=== PATIENT | female | born 1975 | race American Indian/Alaskan Native ===

== ENCOUNTER 2016-08-23 13:03 | Emergency (ER) | payer MEDICAID ==
[2016-08-23 13:55] LABS: Basophils % (Auto) 0.6 % (0.0-1.8); Eosinophils % (Auto) 0.1 % (0.0-4.3); Hemoglobin 11.6 gm/dl (10.1-14.3); Mean Corpuscular HGB Conc 31 % (30-34); Mean Corpuscular Volume 78 fl (79-97); Platelet Count 198 K/mm3 (140-440); Red Blood Count 4.72 M/mm3 (3.65-5.03); Red Cell Distribution Width 15.3 % (13.2-15.2); White Blood Count 4.6 K/mm3 (4.5-11.0)
[2016-08-23 14:02] LABS: Anion Gap 17 mmol/L; Blood Urea Nitrogen 7 mg/dL (7-17); Calcium 8.1 mg/dL (8.4-10.2); Carbon Dioxide 24 mmol/L (22-30); Chloride 99.8 mmol/L (98-107); Glucose 140 mg/dL (65-100); Potassium 3.3 mmol/L (3.6-5.0); Sodium 137 mmol/L (137-145)
[2016-08-23 14:12] LABS: Mean Corpuscular Hemoglobin 25 pg (28-32)
[2016-08-23 14:55] LABS: Bacteria,Urine 1+ /HPF (Negative); Bilirubin,Urine NEG (Negative); Blood,Urine MOD (Negative); Ketones,Urine NEG (Negative); Leukocyte Esterase,Urine MOD (Negative); Mucus,Urine FEW /HPF; Nitrite,Urine NEG (Negative); Urobilinogen,Urine < 2.0 mg/dL (<2.0)
[2016-08-23 15:25] VITALS: BP 108/67
--- NOTE | 2016-08-23 16:58 | Emergency Department Report ---
- General Chief Complaint: Chest Pain Stated Complaint: CHEST PAIN,SOB Time Seen by Provider: 08/23/16 16:19 Source: patient Mode of arrival: Ambulatory Limitations: No Limitations - History of Present Illness Initial Comments: 41-year-old female with a past medical history of PE in 2014 no longer on anticoagulation, -induced hypertension, anxiety, and anemia presents to the hospital complaints of cough and cold symptoms. For 2 days patient has had a productive cough. Today she noticed specks of blood. She also complaining of intermittent chills and sweats and generalized weakness. Patient feels like she has the flu. She denies documented fever. Mild shortness of breath reported. Patient complains of mild upper left chest pain secondary to anxiety that has since improved. - Related Data Home Medications Medication Instructions Recorded Confirmed Last Taken Metoprolol [Lopressor] 25 mg PO BID 11/14/14 12/02/15 11/28/15 25mg Previous Rx's Medication Instructions Recorded Last Taken Type Methylergonovine [Methergine] 0.2 mg PO BID #6 tablet 12/01/15 Unknown Rx Doxycycline [Vibramycin CAP] 100 mg PO Q12HR #14 capsule 12/02/15 Unknown Rx Ferrous Sulfate [Feosol 325 MG tab] 325 mg PO BID #60 tablet 12/02/15 Unknown Rx Multivitamin with Iron 1 each PO DAILY #30 tablet 12/02/15 Unknown Rx [Multivitamins with Iron] Azithromycin [Zithromax Z-ONLAN] 1 dose PO DAILY 5 Days 08/23/16 Unknown Rx Benzonatate [Tessalon Perles] 100 mg PO Q8HR PRN #20 capsule 08/23/16 Unknown Rx Cetirizine HCl [ZyrTEC] 10 mg PO DAILY #30 tab.rapdis 08/23/16 Unknown Rx traMADol [Ultram 50 MG tab] 50 mg PO Q6HR PRN #20 tablet 08/23/16 Unknown Rx Allergies Allergy/AdvReac Type Severity Reaction Status Date / Time ibuprofen [From Motrin] Allergy Shortness Verified 11/27/15 13:50 of Breath Penicillins Allergy Shortness Verified 11/30/15 20:24 of Breath Peanuts Allergy Unknown Uncoded 02/10/15 15:08 ED Review of Systems ROS: Stated complaint: CHEST PAIN,SOB Other details as noted in HPI Comment: All other systems reviewed and negative Other: Constitutional: Positive to Eyes: No eye pain visual changes ENT: No ear pain or throat pain Neck: Denies pain Respiratory: Per HPI Cardiovascular: Denies chest pain, palpitations, syncope GI: Denies abdominal pain, nausea, vomiting, diarrhea : Denies dysuria Musculoskeletal: Cramping of arm when taking her blood pressure Skin: Denies rash, lesions, erythema Neurologic: Denies headache, numbness, weakness Psychiatric: Denies suicidal ideation, hallucinations ED Past Medical Hx - Past Medical History Hx Hypertension: Yes (PIH) Hx Congestive Heart Failure: No Hx Diabetes: No Hx Deep Vein Thrombosis: Yes (Pulmonary embolus 07/18/14) Hx Pulmonary Embolism: Yes (07/18/14) Hx Renal Disease: No Hx Sickle Cell Disease: No Hx Seizures: No Hx Psychiatric Treatment: Yes (anxiety) Hx Asthma: No Hx COPD: No Hx HIV: No Additional medical history: anemia, vaginal delivery, panic attacks after having a child - Social History Smoking Status: Never Smoker Substance Use Type: None - Medications Home Medications: Home Medications Medication Instructions Recorded Confirmed Last Taken Type Metoprolol [Lopressor] 25 mg PO BID 11/14/14 12/02/15 11/28/15 History 25mg Methylergonovine [Methergine] 0.2 mg PO BID #6 tablet 12/01/15 12/02/15 Unknown Rx Doxycycline [Vibramycin CAP] 100 mg PO Q12HR #14 capsule 12/02/15 Unknown Rx Ferrous Sulfate [Feosol 325 MG tab] 325 mg PO BID #60 tablet 12/02/15 Unknown Rx Multivitamin with Iron 1 each PO DAILY #30 tablet 12/02/15 Unknown Rx [Multivitamins with Iron] Azithromycin [Zithromax Z-NOLAN] 1 dose PO DAILY 5 Days 08/23/16 Unknown Rx Benzonatate [Tessalon Perles] 100 mg PO Q8HR PRN #20 capsule 08/23/16 Unknown Rx Cetirizine HCl [ZyrTEC] 10 mg PO DAILY #30 tab.rapdis 08/23/16 Unknown Rx traMADol [Ultram 50 MG tab] 50 mg PO Q6HR PRN #20 tablet 08/23/16 Unknown Rx ED Physical Exam - General Limitations: No Limitations - Other Other exam information: General: No limitations, patient is alert in no acute distress Head exam: Atraumatic, normocephalic Eyes exam: Normal appearance ENT: Moist mucous membrane, normal oropharynx Neck exam: Normal inspection, full range of motion Respiratory exam: Clear to auscultation bilateral, no wheezes, rales, crackles Cardiovascular: Normal rate and rhythm, normal heart sounds Abdomen: Soft, nondistended, and nontender, with normal bowel sounds, no rebound, or guarding Extremity: Full range of motion normal inspection no deformity Back: Normal Inspection, full range of motion, no tenderness Neurologic: Alert, oriented x3, cranial nerves intact, no motor or sensory deficit Psychiatric: normal affect, normal mood Skin: Warm, dry, intact ED Course Vital Signs 08/23/16 08/23/16 08/23/16 14:20 14:41 16:30 Temperature 98.6 F Pulse Rate 88 79 Respiratory 9 L 21 Rate Blood Pressure 108/67 O2 Sat by Pulse 98 98 Oximetry - Reevaluation(s) Reevaluation #1: 08/23/16 16:56 Patient given by mouth potassium 40 mEq ED Medical Decision Making - Lab Data Result diagrams: 08/23/16 13:33 08/23/16 13:33 Lab Results 08/23/16 08/23/16 08/23/16 Range/Units 13:33 13:33 14:10 WBC 4.6 (4.5-11.0) K/mm3 RBC 4.72 (3.65-5.03) M/mm3 Hgb 11.6 (10.1-14.3) gm/dl Hct 37.0 (30.3-42.9) % MCV 78 L (79-97) fl MCH 25 L (28-32) pg MCHC 31 (30-34) % RDW 15.3 H (13.2-15.2) % Plt Count 198 (140-440) K/mm3 Lymph % (Auto) 36.6 H (13.4-35.0) % [place] % (Auto) 11.4 H (0.0-7.3) % Eos % (Auto) 0.1 (0.0-4.3) % Baso % (Auto) 0.6 (0.0-1.8) % Lymph # 1.7 (1.2-5.4) K/mm3 [place] # 0.5 (0.0-0.8) K/mm3 Eos # 0.0 (0.0-0.4) K/mm3 Baso # 0.0 (0.0-0.1) K/mm3 Seg Neutrophils % 51.3 (40.0-70.0) % Seg Neutrophils # 2.4 (1.8-7.7) K/mm3 Sodium 137 (137-145) mmol/L Potassium 3.3 L (3.6-5.0) mmol/L Chloride 99.8 (98-107) mmol/L Carbon Dioxide 24 (22-30) mmol/L Anion Gap 17 mmol/L BUN 7 (7-17) mg/dL Creatinine 0.7 (0.7-1.2) mg/dL Estimated GFR > 60 ml/min BUN/Creatinine Ratio 10.00 % Glucose 140 H (65-100) mg/dL Calcium 8.1 L (8.4-10.2) mg/dL Troponin T < 0.010 (0.00-0.029) ng/mL Urine Color Yellow (Yellow) Urine Turbidity Slightly-cloudy (Clear) Urine pH 5.0 (5.0-7.0) Ur Specific [place] 1.017 (1.003-1.030) Urine Protein 30 mg/dl (Negative) mg/dL Urine Glucose (UA) Neg (Negative) mg/dL Urine Ketones Neg (Negative) mg/dL Urine Blood Mod (Negative) Urine Nitrite Neg (Negative) Urine Bilirubin Neg (Negative) Urine Urobilinogen < 2.0 (<2.0) mg/dL Ur Leukocyte Esterase Mod (Negative) Urine WBC (Auto) 14.0 H (0.0-6.0) /HPF Urine RBC (Auto) 2.0 (0.0-6.0) /HPF U Epithel Cells (Auto) 18.0 H (0-13.0) /HPF Urine Bacteria (Auto) 1+ (Negative) /HPF Urine Mucus Few /HPF Urine HCG, Qual Negative (Negative) 08/23/16 Range/Units 15:50 WBC (4.5-11.0) K/mm3 RBC (3.65-5.03) M/mm3 Hgb (10.1-14.3) gm/dl Hct (30.3-42.9) % MCV (79-97) fl MCH (28-32) pg MCHC (30-34) % RDW (13.2-15.2) % Plt Count (140-440) K/mm3 Lymph % (Auto) (13.4-35.0) % [place] % (Auto) (0.0-7.3) % Eos % (Auto) (0.0-4.3) % Baso % (Auto) (0.0-1.8) % Lymph # (1.2-5.4) K/mm3 [place] # (0.0-0.8) K/mm3 Eos # (0.0-0.4) K/mm3 Baso # (0.0-0.1) K/mm3 Seg Neutrophils % (40.0-70.0) % Seg Neutrophils # (1.8-7.7) K/mm3 Sodium (137-145) mmol/L Potassium (3.6-5.0) mmol/L Chloride (98-107) mmol/L Carbon Dioxide (22-30) mmol/L Anion Gap mmol/L BUN (7-17) mg/dL Creatinine (0.7-1.2) mg/dL Estimated GFR ml/min BUN/Creatinine Ratio % Glucose (65-100) mg/dL Calcium (8.4-10.2) mg/dL Troponin T < 0.010 (0.00-0.029) ng/mL Urine Color (Yellow) Urine Turbidity (Clear) Urine pH (5.0-7.0) Ur Specific [place] (1.003-1.030) Urine Protein (Negative) mg/dL Urine Glucose (UA) (Negative) mg/dL Urine Ketones (Negative) mg/dL Urine Blood (Negative) Urine Nitrite (Negative) Urine Bilirubin (Negative) Urine Urobilinogen (<2.0) mg/dL Ur Leukocyte Esterase (Negative) Urine WBC (Auto) (0.0-6.0) /HPF Urine RBC (Auto) (0.0-6.0) /HPF U Epithel Cells (Auto) (0-13.0) /HPF Urine Bacteria (Auto) (Negative) /HPF Urine Mucus /HPF Urine HCG, Qual (Negative) - EKG Data -: EKG Interpreted by Me (sinus tach 104 nonspecific T-wave abnormalities) - EKG Data When compared to previous EKG there are: no significant change (compared to ) - Radiology Data Radiology results: image reviewed (cxr PA and lateral: No acute findings) - Medical Decision Making Plan to discharge patient was treatment with the antibiotics. Also seasonal allergies. Outpatient follow-up with PMD will be encouraged - Differential Diagnosis bronchitis, seasonal allergies, pneumonia, URI Critical Care Time: No Critical care attestation.: If time is entered above; I have spent that time in minutes in the direct care of this critically ill patient, excluding procedure time. ED Disposition Clinical Impression: Acute bronchitis, Seasonal allergies, Hypokalemia Disposition: DISCHARGED TO HOME OR SELFCARE Is pt being admited?: No Does the pt Need Aspirin: No Condition: Stable Instructions: Acute Bronchitis (ED), Hypokalemia (ED) Additional Instructions: Take the medication as prescribed. Return if symptoms worsen. Follow-up with a primary care doctor. Prescriptions: Azithromycin [Zithromax Z-NOLAN] 1 dose PO DAILY 5 Days Benzonatate [Tessalon Perles] 100 mg PO Q8HR PRN #20 capsule PRN Reason: Cough Cetirizine HCl [ZyrTEC] 10 mg PO DAILY #30 tab.rapdis traMADol [Ultram 50 MG tab] 50 mg PO Q6HR PRN #20 tablet PRN Reason: Pain Referrals: CHRISTINE CR MD [Staff Physician] - 3-5 Days [facility] [Provider Group] - 3-5 Days Time of Disposition: 17:00
[2016-08-23] MEDS ORDERED: K-DUR PO ONE ×2 (17:19→17:22)
--- NOTE | 2016-08-24 07:34 | XRay Report ---
CHEST 2 VIEWS INDICATION: Cough, chills and fever. COMPARISON: 12/01/2015 FINDINGS: PA and lateral chest radiographs demonstrate limited inspiration with slight exaggerated cardiomediastinal silhouette and crowded lung markings. No focal consolidation, pleural effusions or CHF. Intact bones. EKG lead. CONCLUSION: No definite acute chest process, as described. Thank you for the opportunity to participate in this patient's care.
== END 2016-08-23 17:25 | disposition home or self-care (01) ==
LOC: ED 13:03
DX: J20.9 Acute bronchitis, unspecified (principal); J30.2 Other seasonal allergic rhinitis; E87.6 Hypokalemia; I10 Essential (primary) hypertension; F41.9 Anxiety disorder, unspecified; Z86.718 Personal history of other venous thrombosis and embolism; D64.9 Anemia, unspecified; Z88.0 Allergy status to penicillin; Z88.6 Allergy status to analgesic agent; Z91.010 Allergy to peanuts
CPT/HCPCS: 36415; 71020; 80048; 81001; 81025; 84484; 85025; 93005; 93010

== ENCOUNTER 2020-10-23 19:21 | Emergency (ER) | payer MEDICAID, SELFPAY ==
[2020-10-23 20:59] VITALS: BP 144/79
--- NOTE | 2020-10-23 22:06 | Emergency Department Report ---
ED General Adult HPI - General Chief complaint: High BP Stated complaint: ELEVATED BLOOD PRESSURE Time Seen by Provider: 10/23/20 21:35 Source: patient Mode of arrival: Ambulatory Limitations: No Limitations - History of Present Illness Initial comments: Patient is a 45-year-old female presents emergency room with points of some mild dizziness that occurred earlier today. She states that she believes her blood pressure was elevated. She states that she does felt off so she decided to take her blood pressure and it was 150s to 160 systolic. She states normally her blood pressure is normal. She has no prior history of hypertension and is not on blood pressure medication. She states that over the weekend she did have lots of salt secondary to having a cookout. She denies any headache, vision changes, numbness, weakness, chest pain, shortness of breath, vomiting, fever, cough. Past medical history of PE and anxiety. Allergy to ibuprofen and penicillin. - Related Data Home Medications Medication Instructions Recorded Confirmed Last Taken Metoprolol [Lopressor] 25 mg PO BID 11/14/14 12/02/15 11/28/15 25 mg Previous Rx's Medication Instructions Recorded Last Taken Type Methylergonovine [Methergine] 0.2 mg PO BID #6 tablet 12/01/15 Unknown Rx DOXYCYCLINE Hyclate [Vibramycin 100 mg PO Q12HR #14 capsule 12/02/15 Unknown Rx CAP] Ferrous Sulfate [Feosol 325 MG tab] 325 mg PO BID #60 tablet 12/02/15 Unknown Rx Multivitamin with Iron 1 each PO DAILY #30 tablet 12/02/15 Unknown Rx [Multivitamins with Iron] Azithromycin [Zithromax Z-NOLAN] 1 dose PO DAILY 5 Days tab 08/23/16 Unknown Rx Benzonatate [Tessalon Perles] 100 mg PO Q8HR PRN #20 capsule 08/23/16 Unknown Rx Cetirizine HCl [ZyrTEC] 10 mg PO DAILY #30 tab.rapdis 08/23/16 Unknown Rx traMADoL [Ultram 50 MG tab] 50 mg PO Q6HR PRN #20 tablet 08/23/16 Unknown Rx Ciprofloxacin HCl [Ciprofloxacin 500 mg PO BID 7 Days #28 tablet 10/24/20 Unknown Rx TAB] Docusate Sodium [Colace] 100 mg PO BID #60 capsule 10/24/20 Unknown Rx Ferrous Sulfate [Ferrous Sulfate 324 mg PO DAILY #30 tablet. 10/24/20 Unknown Rx 324 MG] Allergies Allergy/AdvReac Type Severity Reaction Status Date / Time ibuprofen [From Motrin] Allergy Shortness Verified 11/27/15 13:50 of Breath Penicillins Allergy Shortness Verified 11/30/15 20:24 of Breath Peanuts Allergy Unknown Uncoded 02/10/15 15:08 ED Review of Systems ROS: Stated complaint: ELEVATED BLOOD PRESSURE Other details as noted in HPI Comment: All other systems reviewed and negative ED Past Medical Hx - Past Medical History Previous Medical History?: Yes Hx Hypertension: Yes (PIH) Hx Congestive Heart Failure: No Hx Diabetes: No Hx Deep Vein Thrombosis: Yes (Pulmonary embolus 07/18/14) Hx Pulmonary Embolism: Yes (07/18/14) Hx Renal Disease: No Hx Sickle Cell Disease: No Hx Seizures: No Hx Psychiatric Treatment: Yes (anxiety) Hx Asthma: No Hx COPD: No Hx HIV: No Additional medical history: anemia, vaginal delivery, panic attacks after having a child - Social History Smoking Status: Never Smoker Substance Use Type: None - Medications Home Medications: Home Medications Medication Instructions Recorded Confirmed Last Taken Type Metoprolol [Lopressor] 25 mg PO BID 11/14/14 12/02/15 11/28/15 History 25 mg Methylergonovine [Methergine] 0.2 mg PO BID #6 tablet 12/01/15 12/02/15 Unknown Rx DOXYCYCLINE Hyclate [Vibramycin 100 mg PO Q12HR #14 capsule 12/02/15 Unknown Rx CAP] Ferrous Sulfate [Feosol 325 MG tab] 325 mg PO BID #60 tablet 12/02/15 Unknown Rx Multivitamin with Iron 1 each PO DAILY #30 tablet 12/02/15 Unknown Rx [Multivitamins with Iron] Azithromycin [Zithromax Z-NOLAN] 1 dose PO DAILY 5 Days tab 08/23/16 Unknown Rx Benzonatate [Tessalon Perles] 100 mg PO Q8HR PRN #20 capsule 08/23/16 Unknown Rx Cetirizine HCl [ZyrTEC] 10 mg PO DAILY #30 tab.rapdis 08/23/16 Unknown Rx traMADoL [Ultram 50 MG tab] 50 mg PO Q6HR PRN #20 tablet 08/23/16 Unknown Rx Ciprofloxacin HCl [Ciprofloxacin 500 mg PO BID 7 Days #28 tablet 10/24/20 Unknown Rx TAB] Docusate Sodium [Colace] 100 mg PO BID #60 capsule 10/24/20 Unknown Rx Ferrous Sulfate [Ferrous Sulfate 324 mg PO DAILY #30 tablet.dr 10/24/20 Unknown Rx 324 MG] ED Physical Exam - General Limitations: No Limitations General appearance: alert, in no apparent distress - Head Head exam: Present: atraumatic, normocephalic - Eye Eye exam: Present: normal appearance - ENT ENT exam: Present: mucous membranes moist - Respiratory Respiratory exam: Present: normal lung sounds bilaterally. Absent: respiratory distress, wheezes, rales, rhonchi, stridor, chest wall tenderness, accessory muscle use, decreased breath sounds, prolonged expiratory - Cardiovascular Cardiovascular Exam: Present: regular rate, normal rhythm, normal heart sounds. Absent: systolic murmur, diastolic murmur, rubs, gallop - Neurological Exam Neurological exam: Present: alert, oriented X3, CN II-XII intact, normal gait. Absent: motor sensory deficit - Psychiatric Psychiatric exam: Present: normal affect, normal mood - Skin Skin exam: Present: warm, dry, intact ED Course Vital Signs 10/23/20 20:44 Temperature 99.5 F Pulse Rate 72 Respiratory 18 Rate Blood Pressure 144/79 O2 Sat by Pulse 100 Oximetry ED Medical Decision Making - Lab Data Result diagrams: 10/23/20 22:09 10/23/20 22:09 Lab Results 10/23/20 10/23/20 10/23/20 Range/Units 22:09 22:09 Unknown WBC 11.2 H (4.5-11.0) K/mm3 RBC 4.27 (3.65-5.03) M/mm3 Hgb 9.0 L (10.1-14.3) gm/dl Hct 30.2 L (30.3-42.9) % MCV 71 L (79-97) fl MCH 21 L (28-32) pg MCHC 30 (30-34) % RDW 16.4 H (13.2-15.2) % Plt Count 306 (140-440) K/mm3 Lymph % (Auto) 18.4 (13.4-35.0) % [place] % (Auto) 2.9 (0.0-7.3) % Eos % (Auto) 0.2 (0.0-4.3) % Baso % (Auto) 0.8 (0.0-1.8) % Lymph # (Auto) 2.1 (1.2-5.4) K/mm3 [place] # (Auto) 0.3 (0.0-0.8) K/mm3 Eos # (Auto) 0.0 (0.0-0.4) K/mm3 Baso # (Auto) 0.1 (0.0-0.1) K/mm3 Seg Neutrophils % 77.7 H (40.0-70.0) % Seg Neutrophils # 8.7 H (1.8-7.7) K/mm3 Sodium 138 (137-145) mmol/L Potassium 3.8 (3.6-5.0) mmol/L Chloride 98.5 (98-107) mmol/L Carbon Dioxide 28 (22-30) mmol/L Anion Gap 15 mmol/L BUN 7 (7-17) mg/dL Creatinine 0.7 (0.6-1.2) mg/dL Estimated GFR > 60 ml/min BUN/Creatinine Ratio 10 % Glucose 101 H (65-100) mg/dL Calcium 8.7 (8.4-10.2) mg/dL Magnesium 1.70 (1.7-2.3) mg/dL Total Bilirubin 0.50 (0.1-1.2) mg/dL AST 24 (5-40) units/L ALT 15 (7-56) units/L Alkaline Phosphatase 105 (35-129) units/L Total Creatine Kinase 285 H (30-135) units/L Total Protein 7.5 (6.3-8.2) g/dL Albumin 4.0 (3.9-5) g/dL Albumin/Globulin Ratio 1.1 % Urine Color Yellow (Yellow) Urine Turbidity Clear (Clear) Urine pH 6.0 (5.0-7.0) Ur Specific [place] 1.010 (1.003-1.030) Urine Protein <15 mg/dl (Negative) mg/dL Urine Glucose (UA) Neg (Negative) mg/dL Urine Ketones Neg (Negative) mg/dL Urine Blood Sm (Negative) Urine Nitrite Neg (Negative) Urine Bilirubin Neg (Negative) Urine Urobilinogen < 2.0 (<2.0) mg/dL Ur Leukocyte Esterase Lg (Negative) Urine WBC (Auto) 34.0 H (0.0-6.0) /HPF Urine RBC (Auto) 3.0 (0.0-6.0) /HPF U Epithel Cells (Auto) 6.0 (0-13.0) /HPF Urine Bacteria (Auto) 1+ (Negative) /HPF Urine Mucus Few /HPF - EKG Data EKG shows normal: sinus rhythm, axis, intervals, QRS complexes, ST-T waves Rate: normal - Medical Decision Making Patient is a 45-year-old female presents emergency room with points of some mild dizziness that occurred earlier today. She states that she believes her blood pressure was elevated. She states that she does felt off so she decided to take her blood pressure and it was 150s to 160 systolic. She states normally her blood pressure is normal. She has no prior history of hypertension and is not on blood pressure medication. She states that over the weekend she did have lots of salt secondary to having a cookout. She denies any headache, vision changes, numbness, weakness, chest pain, shortness of breath, vomiting, fever, cough. Past medical history of PE and anxiety. Allergy to ibuprofen and penicillin. Vitals are stable. Patient has no focal neuro deficits on exam. Labs with stable anemia. UA shows evidence of UTI. EKG is within normal limits. Discussed all results with patient and answer questions. Patient given prescription for Colace, ferrous sulfate, and ciprofloxacin. Advised patient Please take medication as prescribed. Increase your water intake. Follow-up with a primary care doctor prior return to emergency room for any new or worsening symptoms. Eat a low-sodium diet, incorporate 30 to 60 minutes of daily exercise. Critical care attestation.: If time is entered above; I have spent that time in minutes in the direct care of this critically ill patient, excluding procedure time. ED Disposition Clinical Impression: Dizziness, Microcytic anemia UTI (urinary tract infection) Qualifiers: Urinary tract infection type: acute cystitis Hematuria presence: without hematuria Qualified Code(s): N30.00 - Acute cystitis without hematuria Disposition: TO HOME OR SELFCARE Is pt being admited?: No Does the pt Need Aspirin: No Condition: Stable Instructions: Urinary Tract Infection, Adult, [id number], Dizziness, [id number], Iron-Rich Diet Additional Instructions: Please take medication as prescribed. Increase your water intake. Follow-up with a primary care doctor prior return to emergency room for any new or worsening symptoms. Eat a low-sodium diet, incorporate 30 to 60 minutes of daily exercise. Prescriptions: Ciprofloxacin HCl [Ciprofloxacin TAB] 500 mg PO BID 7 Days #28 tablet Docusate Sodium [Colace] 100 mg PO BID #60 capsule Ferrous Sulfate [Ferrous Sulfate 324 MG] 324 mg PO DAILY #30 tablet.dr Referrals: INES IRVIN MD [Staff Physician] - 2-3 Days [facility] [Provider Group] - 2-3 Days Time of Disposition: 00:06 Print Language: KAZAKH
[2020-10-23 22:21] LABS: Basophils # (Auto) 0.1 K/mm3 (0.0-0.1); Basophils % (Auto) 0.8 % (0.0-1.8); Eosinophils % (Auto) 0.2 % (0.0-4.3); Lymphocytes # (Auto) 2.1 K/mm3 (1.2-5.4); Lymphocytes % (Auto) 18.4 % (13.4-35.0); Mean Corpuscular HGB Conc 30 % (30-34); Mean Corpuscular Volume 71 fl (79-97); Monocytes # (Auto) 0.3 K/mm3 (0.0-0.8); Monocytes % (Auto) 2.9 % (0.0-7.3); Platelet Count 306 K/mm3 (140-440); Red Blood Count 4.27 M/mm3 (3.65-5.03); Red Cell Distribution Width 16.4 % (13.2-15.2)
[2020-10-23 22:33] LABS: Hematocrit 30.2 % (30.3-42.9)
[2020-10-23 22:46] LABS: Alanine Aminotransferase 15 units/L (7-56); BUN/Creatinine Ratio 10; Blood Urea Nitrogen 7 mg/dL (7-17); Calcium 8.7 mg/dL (8.4-10.2); Hemolysis Index 38
[2020-10-23 23:56] LABS: Bacteria,Urine 1+ /HPF (Negative); Bilirubin,Urine NEG (Negative); Blood,Urine SM (Negative); Color,Urine Yellow (Yellow); Mucus,Urine FEW /HPF; Protein,Urine <15 mg/dL mg/dL (Negative); Urobilinogen,Urine < 2.0 mg/dL (<2.0)
--- NOTE | 2020-10-25 09:58 | Electrocardiograph Report ---
[facility] Test Date: 2020-10-23 Test Time: 21:43:56 Pat Name: EMMANUEL FAY Department: Room: Gender: F [employer]: : 1975 Requested By: SELENE NOLAND Order Number: [id number] Reading MD: Lance Flores Measurements Intervals [place] Rate: 69 P: 40 ID: [id number] QRS: 7 QRSD: 81 T: 18 QT: 461 QTc: 494 Interpretive Statements Sinus rhythm No previous ECG available for comparison Electronically Signed On 10-25-2020 9:58:03 EDT by Lance Flores
== END 2020-10-24 00:39 | disposition home or self-care (01) ==
LOC: ED 19:21
DX: N39.0 Urinary tract infection, site not specified (principal); D50.9 Iron deficiency anemia, unspecified; R42 Dizziness and giddiness; I10 Essential (primary) hypertension; F41.9 Anxiety disorder, unspecified; Z79.2 Long term (current) use of antibiotics; Z79.899 Other long term (current) drug therapy; Z88.0 Allergy status to penicillin; Z88.6 Allergy status to analgesic agent; Z91.010 Allergy to peanuts
CPT/HCPCS: 36415; 80053; 81001; 82550; 83735; 85025; 87086; 93005